=== PATIENT | female | born 1950 | race Caucasian/White ===

== ENCOUNTER → 2017-02-07 | Outpatient (REF) ==
[~2017-02-07] MED LIST: CIPRO 500MG TA500 MG PO; FLAGYL500 MG PO; NIASPAN1000 MG PO; NORCO 325 MG-51 TAB PO; OYSTER SHELL C500 M3 PO; PEPCID40 MG PO; PRAVACHOL10 MG PO; PRILOSEC 20MG20 MG PO; TUMS500 MG; ZOFRAN ODT4 MG PO
== END ==
LOC: ZLAB.WCH 18:18
DX: Z01.89 Encounter for other specified special examinations (principal)

== ENCOUNTER → 2017-10-03 | Outpatient (CLI) | payer MEDICARE, OTHER | LOC: MC.RAD 08:52 | DX: Z12.31 Encounter for screening mammogram for malignant neoplasm of breast (principal) ==

== ENCOUNTER → 2019-04-23 | Outpatient (CLI) | payer MEDICARE, OTHER | LOC: MC.RAD 04-02 11:15 | DX: Z12.31 Encounter for screening mammogram for malignant neoplasm of breast (principal) ==

== ENCOUNTER → 2021-04-11 | Outpatient (CLI) | payer MEDICARE, OTHER | LOC: MC.RAD 10:23 | DX: Z12.31 Encounter for screening mammogram for malignant neoplasm of breast (principal) ==

== ENCOUNTER → 2023-08-29 | Outpatient (CLI) | payer MEDICARE | LOC: MC.RAD 09:49 | DX: Z12.31 Encounter for screening mammogram for malignant neoplasm of breast (principal) ==